=== PATIENT | male | born 1960 | race Caucasian/White ===

== ENCOUNTER 2024-10-03 13:40 | Emergency (ER) | payer MEDICAID ==
[~2024-10-03] VITALS: Ht 170.2 cm; Wt 70.3 kg
[2024-10-03 13:46] VITALS: TEMP 98
[2024-10-03] MEDS: IV NS 0.9% 1,000 ML BAG IV ONE (15:30)
[2024-10-03 15:34] LABS: APPEARANCE,URINE CLEAR (CLEAR); BLOOD, URINE NEGATIVE Ery/uL (NEGATIVE); LEUKOCYTE ESTERASE ,URINE NEGATIVE (NEGATIVE); NITRITE, URINE NEGATIVE (NEGATIVE); UGLUCOSE NEGATIVE (NEGATIVE)
[2024-10-03 15:42] LABS: PLATELET COUNT (AUTO) 242 K/uL (150-450); RED BLOOD CELL COUNT(AUTO) 4.91 MIL/uL (4.5-6.0); RED CELL DISTRIBUTION WIDTH 20.2 % (11.5-15.0); WHITE BLOOD COUNT (AUTO) 5.5 K/uL (4.3-11.0)
[2024-10-03 15:42] LABS: ADD URINE CULTURE NO; SQUAMOUS EPITHELIAL CELL,UR None Seen /HPF (None Seen)
[2024-10-03 15:57] LABS: ASPARTATE AMINOTRANSFERASE 17 U/L (15-37); CALCIUM, SERUM 8.6 mg/dL (8.5-10.1); CREATININE 0.9 mg/dL (0.6-1.3); SODIUM SERUM 140 mmol/L (136-145); TOTAL PROTEIN, SERUM 6.9 g/dL (6.4-8.2); UREA NITROGEN, BLOOD 23 mg/dL (7-18)
[2024-10-03 21:20] VITALS: BP 135/75; O2SAT 98
== END 2024-10-03 21:16 | disposition home or self-care (01) ==
LOC: ER 13:48
DX: R53.1 Weakness (principal); R10.9 Unspecified abdominal pain; R07.9 Chest pain, unspecified; I11.0 Hypertensive heart disease with heart failure; I50.9 Heart failure, unspecified; Z86.73 Personal history of transient ischemic attack (TIA), and cerebral infarction without residual deficits; Z60.2 Problems related to living alone
CPT/HCPCS: 99285; 71045; 93005; 85025; 80048; 80076; 83735; 81001; 36415; 84443; 84484; J7030

== ENCOUNTER 2024-10-12 18:38 | Emergency (ER) | payer MEDICAID ==
[~2024-10-12] VITALS: Ht 170.2 cm; Wt 70.3 kg
[2024-10-12] MEDS ORDERED: ONDANSETRON HCL/PF 4 MG/2 ML VIAL IVP ONE (19:00)
[2024-10-12 19:19] LABS: PLATELET COUNT (AUTO) 197 K/uL (150-450); RED BLOOD CELL COUNT(AUTO) 4.85 MIL/uL (4.5-6.0); RED CELL DISTRIBUTION WIDTH 21.6 % (11.5-15.0); WHITE BLOOD COUNT (AUTO) 5.6 K/uL (4.3-11.0)
[2024-10-12] MEDS: FAMOTIDINE (20 MG) 20 MG TABLET PO ONE ×2 (19:22→20:44)
[2024-10-12] MEDS: ONDANSETRON 4 MG TAB.RAPDIS SL ONE (19:23)
[2024-10-12 19:26] LABS: CALCIUM, SERUM 8.9 mg/dL (8.5-10.1); CREATININE 0.9 mg/dL (0.6-1.3); SODIUM SERUM 140 mmol/L (136-145); UREA NITROGEN, BLOOD 25 mg/dL (7-18)
[2024-10-12 19:38] LABS: NT-PRO BNP 210 pg/mL (0-125)
[2024-10-12] MEDS ORDERED: ASPIRIN EC 325 MG TABLET.DR PO ONE (20:42)
[2024-10-12] MEDS ORDERED: FAMOTIDINE (20 MG) 20 MG TABLET ONE (20:42)
[2024-10-12] MEDS: ASPIRIN EC 325 MG TABLET.DR PO ONE (20:44)
[2024-10-12] MEDS ORDERED: ALBU8.5H8 INH (22:09)
[2024-10-12] MEDS ORDERED: PANT20TA2 PO (22:09)
[2024-10-12 22:29] VITALS: BP 139/82; TEMP 98.3; O2SAT 97
== END 2024-10-12 22:30 | disposition home or self-care (01) ==
LOC: ER 18:41
DX: R06.02 Shortness of breath (principal); R07.9 Chest pain, unspecified; I11.0 Hypertensive heart disease with heart failure; I50.9 Heart failure, unspecified; I48.91 Unspecified atrial fibrillation; Z86.73 Personal history of transient ischemic attack (TIA), and cerebral infarction without residual deficits
CPT/HCPCS: 99285; 71045; 93005 ×2; 85025; 80048; 36415; 84484 ×2; 83880; Q0162